=== PATIENT | male | born 1960 | race Caucasian/White ===

== ENCOUNTER 2018-07-18 21:06 | Emergency (ER) | payer SELFPAY ==
[~2018-07-18] VITALS: Ht 172.7 cm; Wt 91.0 kg
[2018-07-18] MEDS ORDERED: METHOCARBAMOL 500MG TABLET PO ONE (23:30)
[2018-07-18] MEDS ORDERED: IBUPROFEN 600MG TABLET PO ONE (23:30)
[2018-07-19 00:54] VITALS: BP 167/97
== END 2018-07-19 00:58 | disposition home or self-care (01) ==
LOC: ER 21:06
DX: S16.1XXA Strain of muscle, fascia and tendon at neck level, initial encounter (principal); R07.89 Other chest pain; V49.49XA Driver injured in collision with other motor vehicles in traffic accident, initial encounter; Y93.89 Activity, other specified; Y92.410 Unspecified street and highway as the place of occurrence of the external cause; I10 Essential (primary) hypertension; E11.9 Type 2 diabetes mellitus without complications
CPT/HCPCS: 71045; 93005; 99283